=== PATIENT | female | born 1970 | race American Indian/Alaskan Native ===

== ENCOUNTER 2018-03-05 10:22 | Emergency (ER) | payer SELFPAY ==
[2018-03-05 10:31] VITALS: BP 117/58
[2018-03-05] MEDS ORDERED: CLEOCIN IM ONE (11:19)
[2018-03-05] MEDS ORDERED: IBUPROFEN PO ONE (11:19)
--- NOTE | 2018-03-05 11:46 | Emergency Department Report ---
ED ENT HPI - General Chief complaint: Dental/Oral Stated complaint: RIGHT SIDE OF FACE SWOLLEN/NECK AND EAR PAIN Time Seen by Provider: 03/05/18 11:11 Source: patient Mode of arrival: Ambulatory Limitations: No Limitations - History of Present Illness Initial comments: This is a 48-year-old female nontoxic, well nourished in appearance, no acute signs of distress presents to the ED with c/o of right lower toothache 3 weeks. Patient denies following up with a dentist. Patient stated that pain radiates from his job to his right side of head. Patient otherwise denies any head trauma. Patient describes toothache as aching level of 8 out of 10. Patient stated has some swelling to right sided face. Patient denies any numbness, tingling, fever, chills, headache, stiff neck, abdominal pain, chest pain, shortness of breath. Patient denies any drug allergies or significant past medical history. MD complaint: tooth pain -: week(s) (3) Location: tooth # 1 - pain here Severity: mild Severity scale (0 -10): 8 Quality: aching Consistency: constant Improves with: none Worsens with: none Context- Dental: history of dental caries, poor dental care Associated Symptoms: gum swelling, toothache. denies: fever, cough, pain with swallowing, sore throat, tinnitus, hearing loss, discharge from ear, rhinorrhea - Related Data Previous Rx's Medication Instructions Recorded Last Taken Type Clindamycin [Clindamycin CAP] 600 mg PO BID #20 capsule 11/03/13 Unknown Rx HYDROcodone/APAP 5-325 [Balko 1 each PO Q6HR PRN #30 tablet 11/03/13 Unknown Rx 5-325 mg TAB] Prednisone [predniSONE 10 mg 10 mg PO .TAPER #1 tab.ds.pk 11/03/13 Unknown Rx (6-Day Pack, 21 Tabs)] Furosemide [Lasix] 20 mg PO QDAY #7 tablet 01/30/18 Unknown Rx Ibuprofen [Motrin] 800 mg PO Q8HR #30 tablet 01/30/18 Unknown Rx Acetaminophen/Codeine [Tylenol 1 tab PO Q6H PRN #12 tab 03/05/18 Unknown Rx /Codeine # 3 tab] Chlorhexidine Mouthwash [Peridex] 15 ml MM BID #1 bottle 03/05/18 Unknown Rx Clindamycin [Clindamycin CAP] 300 mg PO Q8H #21 cap 03/05/18 Unknown Rx Ibuprofen [Motrin] 600 mg PO Q8H PRN #20 tablet 03/05/18 Unknown Rx Allergies Allergy/AdvReac Type Severity Reaction Status Date / Time No Known Allergies Allergy Unverified 09/05/13 17:25 ED Dental HPI - General Chief complaint: Dental/Oral Stated complaint: RIGHT SIDE OF FACE SWOLLEN/NECK AND EAR PAIN Time Seen by Provider: 03/05/18 11:11 Source: patient Mode of arrival: Ambulatory Limitations: No Limitations - Related Data Previous Rx's Medication Instructions Recorded Last Taken Type Clindamycin [Clindamycin CAP] 600 mg PO BID #20 capsule 11/03/13 Unknown Rx HYDROcodone/APAP 5-325 [Balko 1 each PO Q6HR PRN #30 tablet 11/03/13 Unknown Rx 5-325 mg TAB] Prednisone [predniSONE 10 mg 10 mg PO .TAPER #1 tab.ds.pk 11/03/13 Unknown Rx (6-Day Pack, 21 Tabs)] Furosemide [Lasix] 20 mg PO QDAY #7 tablet 01/30/18 Unknown Rx Ibuprofen [Motrin] 800 mg PO Q8HR #30 tablet 01/30/18 Unknown Rx Acetaminophen/Codeine [Tylenol 1 tab PO Q6H PRN #12 tab 03/05/18 Unknown Rx /Codeine # 3 tab] Chlorhexidine Mouthwash [Peridex] 15 ml MM BID #1 bottle 03/05/18 Unknown Rx Clindamycin [Clindamycin CAP] 300 mg PO Q8H #21 cap 03/05/18 Unknown Rx Ibuprofen [Motrin] 600 mg PO Q8H PRN #20 tablet 03/05/18 Unknown Rx Allergies Allergy/AdvReac Type Severity Reaction Status Date / Time No Known Allergies Allergy Unverified 09/05/13 17:25 ED Review of Systems ROS: Stated complaint: RIGHT SIDE OF FACE SWOLLEN/NECK AND EAR PAIN Other details as noted in HPI Constitutional: denies: chills, fever Eyes: denies: eye pain, eye discharge, vision change ENT: dental pain. denies: ear pain, throat pain Respiratory: denies: cough, shortness of breath, wheezing Cardiovascular: denies: chest pain, palpitations Endocrine: no symptoms reported Gastrointestinal: denies: abdominal pain, nausea, diarrhea Genitourinary: denies: urgency, dysuria, discharge Musculoskeletal: denies: back pain, joint swelling, arthralgia Skin: denies: rash, lesions Neurological: denies: headache, weakness, paresthesias Psychiatric: denies: anxiety, depression Hematological/Lymphatic: denies: easy bleeding, easy bruising ED Past Medical Hx - Past Medical History Previous Medical History?: Yes Hx Congestive Heart Failure: No Hx Diabetes: No Hx Asthma: Yes Hx COPD: No Hx HIV: No Additional medical history: Hypothyroidism - Surgical History Past Surgical History?: Yes Additional Surgical History: thyroidectomy - Social History Smoking Status: Current Every Day Smoker Substance Use Type: None - Medications Home Medications: Home Medications Medication Instructions Recorded Confirmed Last Taken Type Clindamycin [Clindamycin CAP] 600 mg PO BID #20 capsule 11/03/13 Unknown Rx HYDROcodone/APAP 5-325 [Balko 1 each PO Q6HR PRN #30 tablet 11/03/13 Unknown Rx 5-325 mg TAB] Prednisone [predniSONE 10 mg 10 mg PO .TAPER #1 tab.ds.pk 11/03/13 Unknown Rx (6-Day Pack, 21 Tabs)] Furosemide [Lasix] 20 mg PO QDAY #7 tablet 01/30/18 Unknown Rx Ibuprofen [Motrin] 800 mg PO Q8HR #30 tablet 01/30/18 Unknown Rx Acetaminophen/Codeine [Tylenol 1 tab PO Q6H PRN #12 tab 03/05/18 Unknown Rx /Codeine # 3 tab] Chlorhexidine Mouthwash [Peridex] 15 ml MM BID #1 bottle 03/05/18 Unknown Rx Clindamycin [Clindamycin CAP] 300 mg PO Q8H #21 cap 03/05/18 Unknown Rx Ibuprofen [Motrin] 600 mg PO Q8H PRN #20 tablet 03/05/18 Unknown Rx ED Physical Exam - General Limitations: No Limitations General appearance: alert, in no apparent distress - Head Head exam: Present: atraumatic, normocephalic - Eye Eye exam: Present: normal appearance - Expanded ENT Exam Expanded Ear exam: Present: normal external inspection Mouth exam: Present: normal external inspection Teeth exam: Present: dental caries, fractured tooth #, dental tenderness #, gingival enlargement, other (some swelling to right face with no induration or flutance noted.) Throat exam: Positive: normal inspection, other (Uvula midline.). Negative: tonsillar erythema, tonsillomegaly, tonsillar exudate, R peritonsillar mass, L peritonsillar mass - Neck Neck exam: Present: normal inspection, full ROM. Absent: tenderness, meningismus, lymphadenopathy - Back Exam Back exam: Present: normal inspection, full ROM - Neurological Exam Neurological exam: Present: alert, oriented X3 - Psychiatric Psychiatric exam: Present: normal affect, normal mood - Skin Skin exam: Present: warm, dry, intact, normal color. Absent: rash ED Course Vital Signs 03/05/18 03/05/18 10:28 11:32 Temperature 98.1 F Pulse Rate 80 Respiratory 16 15 Rate Blood Pressure 117/58 O2 Sat by Pulse 97 Oximetry - Reevaluation(s) Reevaluation #1: 03/05/18 11:47 Patient is speaking in full sentences with no signs of distress noted. ED Medical Decision Making - Medical Decision Making This is a 48-year-old female that presents with gingivitis and dental caries. Patient is stable and was examined by me. There is slight swelling to the right lower mandible. I did give patient clindamycin 600 mg IM in the ED and patient is discharged with clindamycin. She had strict instructions to follow-up with oral maxillary surgeon in 24 hours or if symptoms would worsen to return to emergency room as was possible. Patient is discharged with Ultram, Peridex and Clinda. Patient was instructed not to operate any machinery when taking Ultram due to drowsiness. At time of discharge, the patient does not seem toxic or ill in appearance. No acute signs of distress noted. Patient agrees to discharge treatment plan of care. No further questions noted by the patient. Critical care attestation.: If time is entered above; I have spent that time in minutes in the direct care of this critically ill patient, excluding procedure time. ED Disposition Clinical Impression: Dental caries, Gingivitis Disposition: - TO HOME OR SELFCARE Is pt being admited?: No Does the pt Need Aspirin: No Condition: Stable Instructions: Dental Caries (ED), Gingivitis (ED), Acetaminophen/Codeine (By mouth) Additional Instructions: Follow-up with a oral maxillary surgery in 24 hours or if symptoms worsen and continue return to emergency room as soon as possible. . [facility]Address: [address], [place] [address] Hours: Saturday 8AM1PM, 25PM 8AM1PM, 25PM Saturday 7AM2PM Saturday Closed Saturday Closed Saturday 8AM1PM, 25Saturday 8AM1PM, 25PM Phone number: Prescriptions: Acetaminophen/Codeine [Tylenol /Codeine # 3 tab] 1 tab PO Q6H PRN #12 tab PRN Reason: Pain , Severe (7-10) Chlorhexidine Mouthwash [Peridex] 15 ml MM BID #1 bottle Clindamycin [Clindamycin CAP] 300 mg PO Q8H #21 cap Ibuprofen [Motrin] 600 mg PO Q8H PRN #20 tablet PRN Reason: Pain Referrals: PRIMARY CAREMD [Primary Care Provider] - 3-5 Days LALITA CHAPMAN MD [Staff Physician] - 3-5 Days [facility] [Outside] - 3-5 Days Forms: Work/School Release Form(ED)
== END 2018-03-05 11:59 | disposition home or self-care (01) ==
LOC: ED 10:22
DX: K02.9 Dental caries, unspecified (principal); K05.10 Chronic gingivitis, plaque induced; J45.909 Unspecified asthma, uncomplicated; F17.200 Nicotine dependence, unspecified, uncomplicated; E89.0 Postprocedural hypothyroidism
CPT/HCPCS: 96372; 99282